=== PATIENT | male | born 1955 | race Two or more races ===

== ENCOUNTER 2017-03-03 06:46 | Emergency (ER) | payer OTHER ==
[~2017-03-03] VITALS: Ht 170.2 cm; Wt 83.0 kg
[2017-03-03] MEDS ORDERED: LISI-170 PO (07:43)
[2017-03-03] MEDS ORDERED: METO25TA2 PO (07:43)
[2017-03-03 08:09] LABS: HEMATOCRIT 46.4 % (39.2-51.8); HEMOGLOBIN 15.4 g/dL (13.7-18.0); WHITE BLOOD COUNT 7.6 x10^3/uL (3.4-10)
[2017-03-03 08:20] LABS: ASPARTATE AMINO TRANSFERASE 21 U/L (15-37); BLOOD UREA NITROGEN 20 mg/dL (7-18)
[2017-03-03 08:25] LABS: IS PT STATUS REG ER OR PRE ER? YES
[2017-03-03 09:42] VITALS: BP 108/76
== END 2017-03-03 09:47 | disposition home or self-care (01) ==
LOC: ED 07:57
DX: R00.2 Palpitations (principal); I10 Essential (primary) hypertension
CPT/HCPCS: 36415; 71010; 80053; 84439; 84443; 84484; 85025; 93005; 99285